=== PATIENT | female | born 1990 | race Caucasian/White ===

== ENCOUNTER 2017-08-19 13:26 | Inpatient (IN) | payer MEDICAID, SELFPAY ==
[2017-08-19 13:26] VITALS: BP 153/111; PULSE 98; RESP 16; TEMP 36.2; O2SAT 98; BMI 26.9
--- NOTE | 2017-08-19 13:50 | ED.RN ---
PT STATES NON-COMPLIANT WITH HOME MEDICATIONS FOR UNKNOWN AMOUNT OF TIME. PT IS UNSURE OF INSULIN ADMINISTRATION DOSING.
[2017-08-19] MEDS: Dicyclomine 10 MG Capsule 20 MG PO ×2 (14:07→18:08)
[2017-08-19] MEDS: Ondansetron 4 MG/2 ML Vial IV (14:07)
[2017-08-19] MEDS: 0.9% Normal Saline 1,000 ML 1000 ML IV (14:07)
[2017-08-19 14:19] LABS: Absolute Lymphocyte Count 0.72 X10^3/ul (0.83-4.51); Absolute Neutrophil Count 4.6 X10^3/uL (2.0-7.7); Basophil# 0.02 X10^3/uL; Basophil% 0.3 % (0-1); Eosinophil# 0.03 X10^3/uL; Eosinophils% 0.5 % (0-5); Hematocrit 46.7 % (37-47); Hemoglobin 16.1 g/dl (12.0-15.0); Lymphocyte # 0.72 X10^3/ul (4.0); Lymphocyte % 12.2 % (19-41); Mean Corp Hgb Conc 34.5 g/gl (32-36); Mean Platelet Vol. 9.5 fl (6.2-12.0); Monocyte# 0.45 X10^3/uL; Monocyte% 7.7 % (0-10); Neutrophil # 4.64 X10^3/uL (2.7-7.7); Platelet Count 231 K/mm3 (150-450); RBC Distribution Width CV 13.2 % (11.6-14.6); RBC Distribution Width SD 42.3 fl (35.1-43.9); Red Blood Count 5.37 M/mm3 (4.2-5.4); White Blood Count 5.9 K/mm3 (4.4-11.0)
[2017-08-19 14:20] LABS: Bedside Glucose 311 mg/dL (70-110)
[2017-08-19 14:20] LABS: POSITIVE COUNT NO; POSITIVE DIFFERENTIAL NO; POSITIVE MORPHOLOGY NO
[2017-08-19 14:32] LABS: Anion Gap 9 (5-15); BUN 6 mg/dL (7-18); BUN/Creat Ratio 9.3 RATIO (10-20); Calcium,Total 9.5 mg/dL (8.5-10.1); Chloride 100 mmol/L (98-107); Creatinine, Serum 0.65 mg/dL (0.55-1.02); EST Glomerular Filtration Rate 117 mL/min (>60); Est Glom Filt Rate - Afr Amer 142 mL/min (>60); Estimated Creatinine Clearance 127.54 ml/min; Glucose 355 mg/dL (74-106); Potassium 3.9 mmol/L (3.5-5.1); Sodium Level 132 mmol/L (136-145)
[2017-08-19 14:43] LABS: Pregnancy, Serum, hCG Quali. NEGATIVE Negative (0-9 Nonpreg)
--- NOTE | 2017-08-19 14:54 | ED.VISSUMM ---
- ER Visit Summary Date of Service: 08/19/17 Chief Complaint: High blood sugar need medical clearance for [facility] admission History of Present Illness: The patient is a 27 F who has history of diabetes who admits noncompliance and IV drug use. She states she has been injecting heroin for 1 year. She uses approximately 1 g a day. She denies fever, chills or night sweats. She complains of diaphoresis nausea abdominal pain. She states she has not used in greater than 24 hours. She states her A1c is greater than 13. Last menses was 3 weeks ago and was not normal. She does complain of nasal congestion. She does complain of palpitations. She does complain of depression anxiety. Physical Examination: Is slightly anxious. She has numerous track jesus. She has jacinto to her fingers. Head is atraumatic normocephalic. Pupils are equal round reactive. Extraocular muscles are intact. TMs are pearly white with landmarks noted. Nares patent with no drainage. Posterior pharynx without erythema or exudate. Uvula is midline. There is no dysphonia or dysphasia. Trachea is midline. There is no stridor with auscultation of the neck. Heart is regular without murmur, gallop or rub. S1 and S2 are normal. Lungs are clear to auscultation with good movement of air bilaterally. Abdomen is soft mild tenderness with slightly increased bowel sounds. Reflexes are symmetric with no clonus or Babinski sign. Motor sensory are intact. Cranial 2 through 12 are intact. Test Results: BMP is marked for glucose of 355 with a normal CO2 and anion gap. White count is normal. Serum test is negative. Emergency Department Course and Treatment: To evaluate patient's symptoms blood work was obtained. She did receive 5 units of insulin. Spoke with the intake person for [facility] who will evaluate patient to see if she does qualify for admission. Treatment Plan: Pending evaluation by [facility] intake person. Disposition: The [facility] intake person states she meets criteria for admission. She asked if I would contact the hospitalist. Impression: 1. Hyperglycemia and diabetic secondary noncompliance 2. Heroin withdrawal This note was generated with [employer] software. It may contain incorrect words, spelling, and punctuation that were not noted in review of the chart prior to signing ED Disposition - Plan for ED Patient: Chief Complaint: Subst Abuse Referrals: Care Physician,No Primary [Primary Care Provider] -
[2017-08-19 15:44] VITALS: BMI 26.9
--- NOTE | 2017-08-19 15:48 | NURSING ---
Pt reports she has not taken any of her prescribed medications for one month.
--- NOTE | 2017-08-19 15:55 | NURSING ---
DR SAMANO IN ER
--- NOTE | 2017-08-19 16:23 | PCM.HP.STD ---
Problem List (1) Opiate withdrawal Status: Acute (2) DM2 (diabetes mellitus, type 2) Status: Chronic History of Present Illness Date of Admission: 08/19/17 Chief Complaint: acute heroin withdrawal The patient is a 27 year old F who is requesting withdrawal treatment for heroin abuse. Patient injected roughly a gram a day of heroin. Patient's last use was around 1 AM. Patient has been having restless legs, abdominal cramps, rhinorrhea, nausea, abdominal cramps. Patient is requesting treatment. Patient was seen by Akbar Herrera and sent to the emergency room because patient had an elevated blood sugar. Patient blood sugar was 311. In the emergency room, he received Bentyl, 5 units of NovoLog, Zofran and IV fluids. [] Past Medical History Past Medical History (Chronic Problems): Chronic Problems DM2 (diabetes mellitus, type 2) (Chronic) Allergies No Known Allergies Allergy (Verified 08/19/17 13:30) Home Medications: Ambulatory Orders Medication Instructions Recorded Gabapentin [Neurontin] 800 mg PO Q4H PRN 08/19/17 Insulin Lispro [Humalog] 0 unit SQ TIDCM 08/19/17 Lisinopril [Zestril] 40 mg PO DAILY 08/19/17 Psychiatric History: No pertinent psych hx Smoking Status: Current every day smoker Tobacco Use: Cigarettes Alcohol: None Drugs: Heroin - *Family History Maternal History Items: - - No diabetes Review of Systems Constitutional: Reports: Anorexia, Chills. Denies: Fever Eyes: Denies: Blurred vision, Double vision HEENT: Reports: - - Rhinorrhea. Denies: Difficulty Hearing, Difficulty Swallowing Cardiovascular: Denies: Chest Pain, Palpitations Respiratory: Denies: Cough, Shortness of breath at rest, Sputum production Gastrointestinal: Reports: Abdominal Pain, Nausea Genitourinary: Denies: Dysuria Musculoskeletal: Denies: Joint Pain, Joint Tenderness Skin: Denies: Rash, Wounds Neurological: Denies: Numbness, Tingling, Focal weakness Psychiatric: Denies: Anxiety, Depression Hematologic/ Lymphatic: Denies: Easy Bruising, Easy Bleeding, Hx of blood clot VTE Information - Inpt Only VTE Present on Admission: No VTE Mechan Device Prophylaxis: None Reason prophylaxis not ordered:: Medical Contraindication Patient Problems: Active and Suspected Problems Opiate withdrawal (Acute) - Physical Exam General: Alert, - - Anxious. Patient's writhing in bed counseling moving her legs. Verbally combative and threatening to leave if she does not get treatment right away. HEENT: Atraumatic, Normocephalic Neck: No Nodes, Thyroid Normal Size and Texture Lungs: Clear to auscultation, Normal air movement, No rhonchi, No wheeze Cardiovascular: Regular rate, Regular Rhythm, Normal S1, Normal S2 Abdomen: Bowel Sounds Present, Soft, Non Tender, Non-Distended, No Hepato-splenomegaly Extremities: No edema, No Calf Tenderness Skin: - - Does not track jesus of the upper extremities but no fluctuance nor any abscesses noted. Musculoskeletal: No Tenderness to Palpation of Joints or Extremities, No Muscle Wasting Psych/Mental Status: Agitated, Anxious Vital Signs Temp Pulse Resp BP Pulse Ox 36.2 C L 98 16 153/111 H 98 08/19/17 13:26 08/19/17 13:26 08/19/17 13:26 08/19/17 13:26 08/19/17 13:26 Oxygen Delivery Method Room Air Weight: 78.018 kg Body Mass Index (BMI) 26.9 Finger Stick Blood Glucose 311 Laboratory Tests Past 24 Hrs 08/19/17 08/19/17 08/19/17 14:10 14:10 14:10 WBC 5.9 RBC 5.37 Hgb 16.1 H Hct 46.7 MCV 87.0 MCH 30.0 MCHC 34.5 RDW 13.2 RDW Differential 42.3 Plt Count 231 MPV 9.5 Immature Gran % (Auto) 0.300 Neut % (Auto) 79.0 H Lymph % (Auto) 12.2 L Swift % (Auto) 7.7 Eos % (Auto) 0.5 Baso % (Auto) 0.3 Absolute Neuts (auto) 4.6 Absolute Lymphs (auto) 0.72 L Total Counted Not Reportable Sodium 132 L Potassium 3.9 Chloride 100 Carbon Dioxide 23.0 Anion Gap 9 BUN 6 L Creatinine 0.65 Estim Creat Clear Calc 127.54 Est GFR (MDRD) Af Amer 142 Est GFR (MDRD) Non-Af 117 BUN/Creatinine Ratio 9.3 L Glucose 355 H Calcium 9.5 Serum , Qual NEGATIVE POC Glucose 08/19/17 14:15 POC Glucose 311 H Assessment/Plan Active and Suspected Problems Opiate withdrawal (Acute) 1. Acute opiate withdrawal Patient uses heroin CINA 18 The medical stabilization protocol for opiates with Subutex. For patient other somatic complaints, patient will have other medications to be provided for issues such as restless legs and abdominal cramps. 2. Diabetes mellitus type 2 Uncontrolled due to noncompliance. Patient just was using needles of heroin in lieu of needles of insulin. Will start patient on 25 of Levemir +5 units of NovoLog with meals plus a sliding scale. Make further adjustments based on how her blood sugar response. A young age and thin appearance, patient states that she is not a type I diabetic Code Visit Inpatient E&M: 59732 Init Hosp L2
[2017-08-19 16:25] VITALS: BP 159/113; PULSE 69; RESP 27; O2SAT 98
--- NOTE | 2017-08-19 16:25 | NURSING ---
Nayan HEROIN WITHDRAWAL JAZMYNE
--- NOTE | 2017-08-19 16:31 | HP.PCM_ITS ---
Problem List (1) Opiate withdrawal Status: Acute (2) DM2 (diabetes mellitus, type 2) Status: Chronic History of Present Illness Date of Admission: 08/19/17 Chief Complaint: acute heroin withdrawal The patient is a 27 year old F who is requesting withdrawal treatment for heroin abuse. Patient injected roughly a gram a day of heroin. Patient's last use was around 1 AM. Patient has been having restless legs, abdominal cramps, rhinorrhea, nausea, abdominal cramps. Patient is requesting treatment. Patient was seen by Akbar Herrera and sent to the emergency room because patient had an elevated blood sugar. Patient blood sugar was 311. In the emergency room, he received Bentyl, 5 units of NovoLog, Zofran and IV fluids. [] Past Medical History Past Medical History (Chronic Problems): Chronic Problems DM2 (diabetes mellitus, type 2) (Chronic) Allergies No Known Allergies Allergy (Verified 08/19/17 13:30) Home Medications: Ambulatory Orders Medication Instructions Recorded Gabapentin [Neurontin] 800 mg PO Q4H PRN 08/19/17 Insulin Lispro [Humalog] 0 unit SQ TIDCM 08/19/17 Lisinopril [Zestril] 40 mg PO DAILY 08/19/17 Psychiatric History: No pertinent psych hx Smoking Status: Current every day smoker Tobacco Use: Cigarettes Alcohol: None Drugs: Heroin - *Family History Maternal History Items: - - No diabetes Review of Systems Constitutional: Reports: Anorexia, Chills. Denies: Fever Eyes: Denies: Blurred vision, Double vision HEENT: Reports: - - Rhinorrhea. Denies: Difficulty Hearing, Difficulty Swallowing Cardiovascular: Denies: Chest Pain, Palpitations Respiratory: Denies: Cough, Shortness of breath at rest, Sputum production Gastrointestinal: Reports: Abdominal Pain, Nausea Genitourinary: Denies: Dysuria Musculoskeletal: Denies: Joint Pain, Joint Tenderness Skin: Denies: Rash, Wounds Neurological: Denies: Numbness, Tingling, Focal weakness Psychiatric: Denies: Anxiety, Depression Hematologic/ Lymphatic: Denies: Easy Bruising, Easy Bleeding, Hx of blood clot VTE Information - Inpt Only VTE Present on Admission: No VTE Mechan Device Prophylaxis: None Reason prophylaxis not ordered:: Medical Contraindication Patient Problems: Active and Suspected Problems Opiate withdrawal (Acute) - Physical Exam General: Alert, - - Anxious. Patient's writhing in bed counseling moving her legs. Verbally combative and threatening to leave if she does not get treatment right away. HEENT: Atraumatic, Normocephalic Neck: No Nodes, Thyroid Normal Size and Texture Lungs: Clear to auscultation, Normal air movement, No rhonchi, No wheeze Cardiovascular: Regular rate, Regular Rhythm, Normal S1, Normal S2 Abdomen: Bowel Sounds Present, Soft, Non Tender, Non-Distended, No Hepato- splenomegaly Extremities: No edema, No Calf Tenderness Skin: - - Does not track jesus of the upper extremities but no fluctuance nor any abscesses noted. Musculoskeletal: No Tenderness to Palpation of Joints or Extremities, No Muscle Wasting Psych/Mental Status: Agitated, Anxious Vital Signs Temp Pulse Resp BP Pulse Ox 36.2 C L 98 16 153/111 H 98 08/19/17 13:26 08/19/17 13:26 08/19/17 13:26 08/19/17 13:26 08/19/17 13:26 Oxygen Delivery Method Room Air Weight: 78.018 kg Body Mass Index (BMI) 26.9 Finger Stick Blood Glucose 311 Laboratory Tests Past 24 Hrs 08/19/17 08/19/17 08/19/17 14:10 14:10 14:10 WBC 5.9 RBC 5.37 Hgb 16.1 H Hct 46.7 MCV 87.0 MCH 30.0 MCHC 34.5 RDW 13.2 RDW Differential 42.3 Plt Count 231 MPV 9.5 Immature Gran % (Auto) 0.300 Neut % (Auto) 79.0 H Lymph % (Auto) 12.2 L Sampson % (Auto) 7.7 Eos % (Auto) 0.5 Baso % (Auto) 0.3 Absolute Neuts (auto) 4.6 Absolute Lymphs (auto) 0.72 L Total Counted Not Reportable Sodium 132 L Potassium 3.9 Chloride 100 Carbon Dioxide 23.0 Anion Gap 9 BUN 6 L Creatinine 0.65 Estim Creat Clear Calc 127.54 Est GFR (MDRD) Af Amer 142 Est GFR (MDRD) Non-Af 117 BUN/Creatinine Ratio 9.3 L Glucose 355 H Calcium 9.5 Serum , Qual NEGATIVE POC Glucose 08/19/17 14:15 POC Glucose 311 H Assessment/Plan Active and Suspected Problems Opiate withdrawal (Acute) 1. Acute opiate withdrawal * Patient uses heroin * CINA 18 * The medical stabilization protocol for opiates with Subutex. For patient other somatic complaints, patient will have other medications to be provided for issues such as restless legs and abdominal cramps. 2. Diabetes mellitus type 2 * Uncontrolled due to noncompliance. Patient just was using needles of heroin in lieu of needles of insulin. * Will start patient on 25 of Levemir +5 units of NovoLog with meals plus a sliding scale. Make further adjustments based on how her blood sugar response. * A young age and thin appearance, patient states that she is not a type I diabetic Code Visit Inpatient E&M: 03939 Init Hosp L2
[2017-08-19 16:35] VITALS: BP 159/113; PULSE 69; RESP 27; O2SAT 98
[2017-08-19 17:05] VITALS: BMI 26.4
[2017-08-19 17:06] VITALS: BP 157/105; PULSE 76; RESP 18; TEMP 36.6; O2SAT 96
[2017-08-19 18:01] LABS: Bedside Glucose 455 mg/dL (70-110)
[2017-08-19] MEDS: Buprenorphine HCl 2 MG TAB.SUBL SL (18:07)
[2017-08-19] MEDS: Methocarbamol 750 MG Tablet PO (18:09)
[2017-08-19] MEDS: cloNIDine HCl 0.1 MG Tablet PO ×2 (18:09→21:49)
[2017-08-19 18:55] LABS: Bedside Glucose 444 mg/dL (70-110)
[2017-08-19 21:43] VITALS: BP 145/100; PULSE 81; RESP 18; TEMP 36.8
[2017-08-19] MEDS: traZODone 50 MG Tablet PO (21:49)
[2017-08-19 22:16] LABS: Bedside Glucose 408 mg/dL (70-110)
[2017-08-19] MEDS: Ibuprofen 600 MG Tablet PO (23:31)
[2017-08-19] MEDS: Pramipexole Di-HCl 0.25 MG Tablet PO (23:31)
--- NOTE | 2017-08-19 23:32 | NURSING ---
MOTRIN AND MIRAPEX GIVEN FOR RESTLESS AND PAINFUL LEGS.
[2017-08-20] VITALS (7 sets, daily range): BP systolic 126–151; BP diastolic 82–108; PULSE 70–86; RESP 14–18; TEMP 36.4–37.1; O2SAT 99
[2017-08-20] MEDS: cloNIDine HCl 0.1 MG Tablet PO ×5 (02:40→21:06)
[2017-08-20] MEDS: Ondansetron ODT 4 MG Tablet PO ×3 (02:40→21:06)
[2017-08-20] MEDS: Buprenorphine HCl 2 MG TAB.SUBL SL ×3 (02:40→18:05)
[2017-08-20] MEDS: Methocarbamol 750 MG Tablet PO ×3 (02:40→21:06)
[2017-08-20] MEDS: Acetaminophen 500 MG Tablet PO (03:25)
[2017-08-20] MEDS: hydrOXYzine PAM 25 MG Capsule 50 MG PO ×2 (05:35→14:07)
[2017-08-20 06:25] LABS: Magnesium 2.1 mg/dL (1.6-2.6)
--- NOTE | 2017-08-20 08:01 | PN_ITS ---
Patient Problems: Active and Suspected Problems Opiate withdrawal (Acute) Subjective: This is a 27-year-old lady with history of diabetes mellitus type 1 as well as heroine dependence who presented with acute opiate withdrawal 08/20/2017: Patient seen very diaphoretic this a.m. complains of nausea. Objective: GENERAL: cooperative HEENT: Clear conjunctiva, NECK; supple, normal thyroid, CHEST: Clear to auscultation bilaterally, HEART: Regular S1 S2, no audible murmurs ABDOMEN: soft, non-tender, normoactive bowel sounds, RECTAL: deferred EXTREMITIES: No edema, no clubbing, no cyanosis. 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 SKIN: No rash Vitals/I&O's: Vital Signs Temp Pulse Resp BP Pulse Ox 97.6 F L 71 18 126/91 H 96 08/20/17 05:37 08/20/17 05:37 08/20/17 05:37 08/20/17 05:37 08/19/17 17:06 Oxygen Delivery Method Room Air Weight: 76.612 kg Body Mass Index (BMI) 26.4 Intake and Output for Last 24 Hours 08/18/17 08/19/17 08/20/17 23:59 23:59 23:59 Intake Total 640 / 640 900 / 900 Balance 640 / 640 900 / 900 Laboratory Results 08/19/17 17:57: POC Glucose 455 H* 08/19/17 18:52: POC Glucose 444 H 08/19/17 21:48: POC Glucose 408 H 08/20/17 05:40: Magnesium 2.1 08/20/17 05:40: Hemoglobin A1c Pending Current Medications Acetaminophen (Tylenol) 500 mg PO Q4H PRN PRN PRN Reason: Temp > 100.4 F Last Admin: 08/20/17 03:25 Dose: 500 mg Al Hydroxide/Mg Hydroxide (Mylanta Ii) 30 ml PO Q6H PRN PRN PRN Reason: dyspesia Buprenorphine HCl (Buprenorphine Hcl) 4 mg SL Q8H WILMER PRN Reason: Taper Stop: 08/22/17 21:59 Last Admin: 08/20/17 02:40 Dose: 4 mg Clonidine (Catapres) 0.1 mg PO Q2H PRN PRN PRN Reason: Hot/Cold Sweats or Anxiety Last Admin: 08/20/17 05:35 Dose: 0.1 mg Dextrose (D50w Syringe) 0 gm IV X1 PRN; Protocol PRN Reason: Hypoglycemia Dicyclomine HCl (Bentyl) 20 mg PO Q6H PRN PRN PRN Reason: Abdomnial Discomfort Last Admin: 08/19/17 18:08 Dose: 20 mg Gabapentin (Neurontin) 800 mg PO Q4H PRN PRN PRN Reason: PAIN Glucagon () 1 mg IM .X1 PRN PRN Reason: Hypoglycemia Hydroxyzine Pamoate (Vistaril Pamoate Capsule) 50 mg PO Q6H PRN PRN PRN Reason: Mild Anxiety (score 1/3) Last Admin: 08/20/17 05:35 Dose: 50 mg Ibuprofen (Motrin) 600 mg PO Q8H PRN PRN PRN Reason: Mild-Moderate Pain (1-5/10) Last Admin: 08/19/17 23:31 Dose: 600 mg Insulin Aspart (Novolog Flexpen (Bkc)) 5 units SC DINNER [facility] Last Admin: 08/19/17 18:09 Dose: 5 units Insulin Aspart (Novolog Flexpen (Bkc)) 5 units SC BREAKFAST WILMER Insulin Aspart (Novolog Flexpen (Bkc)) 5 units SC LUNCH WILMER Insulin Aspart (Novolog Flexpen (Bkc)) 0 units SC ACHS WILMER PRN Reason: Protocol Insulin Detemir (Levemir (Bkc)) 25 units SC QHS [facility] Last Admin: 08/19/17 21:49 Dose: 25 u Lisinopril (Zestril) 40 mg PO DAILY [facility] Loperamide HCl (Imodium) 2 - 4 mg PO UD PRN PRN Reason: LOOSE STOOLS Magnesium Hydroxide (Milk Of Magnesia) 30 ml PO DAILY PRN PRN PRN Reason: Constipation Methocarbamol (Methocarbamol) 750 mg PO Q6H PRN PRN PRN Reason: Muscle Aches Last Admin: 08/20/17 02:40 Dose: 750 mg Multivitamins/Minerals ([facility]amin With Minerals) [facility] Nicotine (Nicoderm Cq (Pbkc)) 21 mg TRANSDERM. DAILY [facility] Last Admin: 08/19/17 18:17 Dose: 21 mg Ondansetron HCl (Zofran Odt) 4 mg PO Q6H PRN PRN PRN Reason: NAUSEA Last Admin: 08/20/17 02:40 Dose: 4 mg Pramipexole Dihydrochloride (Mirapex) 0.25 mg PO Q12H PRN PRN PRN Reason: Restless Legs Last Admin: 08/19/17 23:31 Dose: 0.25 mg Sodium Chloride () 5 - 30 ml IV UD PRN PRN Reason: SALINE FLUSH Trazodone HCl (Desyrel) 50 mg PO QHS WILMER Last Admin: 08/19/17 21:49 Dose: 50 mg Medical Necessity - Tobacco Use Smoking Status: Current every day smoker Tobacco Use: Cigarettes Assessment/Plan Active and Suspected Problems Opiate withdrawal (Acute) This is a 27-year-old lady with history of diabetes mellitus type 1 as well as heroine dependence who presented with acute opiate withdrawal 1. Acute opioid withdrawal: Patient has been admitted to regular nursing floor where he is currently being managed with Subutex for medical stabilization 2. Heroin dependence counseled on cessation 3. Tobacco dependence counseled on cessation, offered nicotine patch for tobacco cravings 4. Diabetes mellitus type I patient is on insulin did continue with home regimen in addition to Accu-Cheks before meals and at bedtime with sliding scale coverage 5. DVT prophylaxis low risk did encourage early ambulation Code Visit Inpatient E&M: 66063 Subs Hosp L3
[2017-08-20 08:36] LABS: Bedside Glucose 323 mg/dL (70-110)
[2017-08-20] MEDS: Multivitamins,Ther W-Minerals Tablet 1 TABLET PO (09:45)
[2017-08-20] MEDS: Lisinopril 40 MG Tablet PO (09:45)
[2017-08-20] MEDS: Magnesium Hydroxide 30 ML UDC PO (09:53)
[2017-08-20 11:46] LABS: Bedside Glucose 390 mg/dL (70-110)
[2017-08-20] MEDS: Pramipexole Di-HCl 0.25 MG Tablet PO (14:07)
[2017-08-20] MEDS: Dicyclomine 10 MG Capsule 20 MG PO ×2 (14:07→21:05)
[2017-08-20 16:40] LABS: Bedside Glucose 321 mg/dL (70-110)
[2017-08-20] MEDS: Ibuprofen 600 MG Tablet PO (18:17)
[2017-08-20] MEDS: traZODone 50 MG Tablet PO (21:05)
[2017-08-20 21:21] LABS: Bedside Glucose 416 mg/dL (70-110)
[2017-08-21] MEDS: Buprenorphine HCl 2 MG TAB.SUBL SL ×3 (02:36→22:14)
[2017-08-21] MEDS: cloNIDine HCl 0.1 MG Tablet PO ×4 (02:39→19:48)
[2017-08-21 02:41] VITALS: BP 145/100; PULSE 72; RESP 18; TEMP 36.7
[2017-08-21 07:25] VITALS: BP 147/109; PULSE 69; RESP 16; TEMP 36.7
[2017-08-21] MEDS: Lisinopril 40 MG Tablet PO (07:42)
--- NOTE | 2017-08-21 07:43 | PN_ITS ---
Patient Problems: Active and Suspected Problems Opiate withdrawal (Acute) Subjective: Patient seen blood glucose levels not well controlled currently in the 300s ; adjustment made to her insulin regimen Objective: GENERAL: cooperative HEENT: Clear conjunctiva, NECK; supple, normal thyroid, CHEST: Clear to auscultation bilaterally, HEART: Regular S1 S2, no audible murmurs ABDOMEN: soft, non-tender, normoactive bowel sounds, RECTAL: deferred EXTREMITIES: No edema, no clubbing, no cyanosis. 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 SKIN: No rash Vitals/I&O's: Vital Signs Temp Pulse Resp BP Pulse Ox 98.1 F 69 16 147/109 H 99 08/21/17 07:25 08/21/17 07:25 08/21/17 07:25 08/21/17 07:25 08/20/17 08:29 Oxygen Delivery Method Room Air Weight: 76.612 kg Body Mass Index (BMI) 26.4 Intake and Output for Last 24 Hours 08/19/17 08/20/17 08/21/17 23:59 23:59 23:59 Intake Total 640 / 640 2500 / 2500 Balance 640 / 640 2500 / 2500 Laboratory Results 08/20/17 05:40: Hemoglobin A1c 13.0 H 08/20/17 08:32: POC Glucose 323 H 08/20/17 11:40: POC Glucose 390 H 08/20/17 16:37: POC Glucose 321 H 08/20/17 20:56: POC Glucose 416 H Current Medications Acetaminophen (Tylenol) 500 mg PO Q4H PRN PRN PRN Reason: Temp > 100.4 F Last Admin: 08/20/17 03:25 Dose: 500 mg Al Hydroxide/Mg Hydroxide (Mylanta Ii) 30 ml PO Q6H PRN PRN PRN Reason: dyspesia Buprenorphine HCl (Buprenorphine Hcl) 2 mg SL Q8H WILMER PRN Reason: Taper Stop: 08/22/17 21:59 Last Admin: 08/21/17 02:36 Dose: 2 mg Clonidine (Catapres) 0.1 mg PO Q2H PRN PRN PRN Reason: Hot/Cold Sweats or Anxiety Last Admin: 08/21/17 02:39 Dose: 0.1 mg Dextrose (D50w Syringe) 0 gm IV X1 PRN; Protocol PRN Reason: Hypoglycemia Dicyclomine HCl (Bentyl) 20 mg PO Q6H PRN PRN PRN Reason: Abdomnial Discomfort Last Admin: 08/20/17 21:05 Dose: 20 mg Gabapentin (Neurontin) 800 mg PO Q4H PRN PRN PRN Reason: PAIN Glucagon () 1 mg IM .X1 PRN PRN Reason: Hypoglycemia Hydroxyzine Pamoate (Vistaril Pamoate Capsule) 50 mg PO Q6H PRN PRN PRN Reason: Mild Anxiety (score 1/3) Last Admin: 08/20/17 14:07 Dose: 50 mg Ibuprofen (Motrin) 600 mg PO Q8H PRN PRN PRN Reason: Mild-Moderate Pain (1-5/10) Last Admin: 08/20/17 18:17 Dose: 600 mg Insulin Aspart (Novolog Flexpen (Bkc)) 5 units SC DINNER [facility] Last Admin: 08/20/17 17:09 Dose: 5 units Insulin Aspart (Novolog Flexpen (Bkc)) 5 units SC BREAKFAST [facility] Last Admin: 08/20/17 09:46 Dose: 5 units Insulin Aspart (Novolog Flexpen (Bkc)) 5 units SC LUNCH [facility] Last Admin: 08/20/17 11:59 Dose: 5 units Insulin Aspart (Novolog Flexpen (Bkc)) 0 units SC ACHS [facility] PRN Reason: Protocol Last Admin: 08/20/17 21:06 Dose: 11 units Insulin Detemir (Levemir (Bkc)) 25 units SC QHS [facility] Last Admin: 08/20/17 21:06 Dose: 25 u Lisinopril (Zestril) 40 mg PO DAILY [facility] Last Admin: 08/20/17 09:45 Dose: 40 mg Loperamide HCl (Imodium) 2 - 4 mg PO UD PRN PRN Reason: LOOSE STOOLS Magnesium Hydroxide (Milk Of Magnesia) 30 ml PO DAILY PRN PRN PRN Reason: Constipation Last Admin: 08/20/17 09:53 Dose: 30 ml Methocarbamol (Methocarbamol) 750 mg PO Q6H PRN PRN PRN Reason: Muscle Aches Last Admin: 08/20/17 21:06 Dose: 750 mg Multivitamins/Minerals ([facility]amin [facility] Minerals) [facility] Last Admin: 08/20/17 09:45 Dose: 1 tablet Nicotine (Nicoderm Cq (Pbkc)) 21 mg TRANSDERM. DAILY [facility] Last Admin: 08/20/17 09:44 Dose: 21 mg Nicotine Polacrilex (Rugby Nicotine (Bkc)) 2 mg PO Q2H PRN PRN PRN Reason: Nicotine Craving Ondansetron HCl (Zofran Odt) 4 mg PO Q6H PRN PRN PRN Reason: NAUSEA Last Admin: 08/20/17 21:06 Dose: 4 mg Pramipexole Dihydrochloride (Mirapex) 0.25 mg PO Q12H PRN PRN PRN Reason: Restless Legs Last Admin: 08/20/17 14:07 Dose: 0.25 mg Sodium Chloride () 5 - 30 ml IV UD PRN PRN Reason: SALINE FLUSH Trazodone HCl (Desyrel) 50 mg PO QHS [facility] Last Admin: 08/20/17 21:05 Dose: 50 mg Medical Necessity - Tobacco Use Smoking Status: Current every day smoker Tobacco Use: Cigarettes Assessment/Plan Active and Suspected Problems Opiate withdrawal (Acute) This is a 27-year-old lady with history of diabetes mellitus type 1 as well as heroine dependence who presented with acute opiate withdrawal 1. Acute opioid withdrawal: Patient has been admitted to regular nursing floor where he is currently being managed with Subutex for medical stabilization 2. Heroin dependence counseled on cessation 3. Tobacco dependence counseled on cessation, offered nicotine patch for tobacco cravings 4. Diabetes mellitus type I patient is on insulin did continue with home regimen in addition to Accu-Cheks before meals and at bedtime with sliding scale coverage 5. DVT prophylaxis low risk did encourage early ambulation Code Visit Inpatient E&M: 34843 Subs Hosp L2
[2017-08-21] MEDS: Methocarbamol 750 MG Tablet PO ×3 (07:49→22:14)
[2017-08-21] MEDS: Multivitamins,Ther W-Minerals Tablet 1 TABLET PO (08:13)
[2017-08-21] MEDS: Dicyclomine 10 MG Capsule 20 MG PO ×2 (10:42→19:47)
[2017-08-21] MEDS: Ondansetron ODT 4 MG Tablet PO ×2 (10:43→19:47)
[2017-08-21] MEDS: Nicotine Polacrilex 2 MG GUM PO ×3 (10:44→22:20)
[2017-08-21 11:26] LABS: Bedside Glucose 317 mg/dL (70-110)
[2017-08-21 11:36] LABS: Bedside Glucose 355 mg/dL (70-110)
--- NOTE | 2017-08-21 13:06 | CASEMGMT ---
Addendum entered by Antonio Givens 08/21/17 13:37: F/U appointment made with Radha Sherman for Sunday, September 10, 2017. Pt is aware, card with appt date/time given to pt. Original Note: DARCIE LONG consulted for pt who is part of [facility]. Type I diabetic, states she does not know where her supplies and insulin pens are. DARCIE LONG discussed importance of blood glucose monitoring, f/u with physicians and taking medications as prescribed. Business card given for [facility]. Pt states she will call for f/u on dc. -[facility] formulary review for 2018. Levemir inj and flextouch is on the formulary. -Recommend technical publications manager counseling prior to dc. Huey MAHONEY RN ACM
[2017-08-21 14:00] VITALS: BP 153/110; PULSE 79; RESP 16; TEMP 37
[2017-08-21] MEDS: hydrOXYzine PAM 25 MG Capsule 50 MG PO ×2 (14:30→22:14)
[2017-08-21 17:50] LABS: Bedside Glucose 254 mg/dL (70-110)
[2017-08-21 18:00] VITALS: BP 146/89; PULSE 78; RESP 16; TEMP 37
[2017-08-21] MEDS: Pramipexole Di-HCl 0.25 MG Tablet PO (19:47)
[2017-08-21] MEDS: Ibuprofen 600 MG Tablet PO (19:47)
[2017-08-21 19:55] VITALS: BP 157/13; PULSE 90; RESP 16; TEMP 36.9
[2017-08-21] MEDS: traZODone 50 MG Tablet PO (22:15)
[2017-08-21] MEDS: Gabapentin 800 MG Tablet PO (22:15)
[2017-08-21 22:40] VITALS: BP 155/116
[2017-08-22 00:06] LABS: Bedside Glucose 360 mg/dL (70-110)
[2017-08-22] MEDS: hydroCHLOROthiazide 25 MG Tablet 12.5 MG PO ×2 (01:00→10:46)
[2017-08-22 05:59] VITALS: BP 129/93; PULSE 70; RESP 16; TEMP 36.6
--- NOTE | 2017-08-22 07:36 | DCINST_ITS ---
- Discharge Diagnoses Current Active Problems: Current Active and Chronic Problems Opiate withdrawal (Acute) DM2 (diabetes mellitus, type 2) (Chronic) You will use the following diet at home:: Calorie/Carbohydrate Controlled ( specify 1200, 1400, etc) - 1800 Discharge Activity: Return to Normal Activity Instructions: Healthy Meals for Diabetes, Diabetes: Understanding Carbohydrates , Eating Out When You Have Diabetes, Diabetes: Shopping for and Preparing Meals , Diabetes: Sick-Day Plan, Planning for Travel When You Have Diabetes, Understanding Fat and Cholesterol, Diabetes: Living Your Life, Managing Diabetes : The A1C Test, Diabetes: Learning About Serving and Portion Sizes, Diabetes: Meal Planning, Diabetes: Understanding Carbohydrates, Fats, and Protein, Getting Support When You Have Diabetes, Managing Stress When You Have Diabetes, Understanding Type 1 Diabetes, Your Diabetes Toolkit Allergies/Adverse Reactions: Allergies No Known Allergies Allergy (Verified 08/19/17 13:30) Medications to take at Discharge Gabapentin [Neurontin] 800 mg PO Q4H PRN 08/19/17 Insulin Lispro [Humalog] 0 unit SQ TIDCM 08/19/17 Lisinopril [Zestril] 40 mg PO DAILY 08/19/17 Primary Care Physician: Care Physician,No Primary [Primary Care Provider] - Please Follow Up With: Nancy Sherman NP-C When: Friday Proposed Discharge Date: 08/22/17
--- NOTE | 2017-08-22 07:36 | PCM.DC.SUM ---
Discharge Date and Diagnosis - Problem List Patient Problems: Active and Suspected Problems Opiate withdrawal (Acute) Date of Admission: 08/19/17 Date of Discharge: 08/22/17 - Primary Discharge Diagnosis Active and Suspected Problems Opiate withdrawal (Acute) - Secondary Discharge Diagnosis Chronic Problems DM2 (diabetes mellitus, type 2) (Chronic) Hospital Course and Treatment Summary of Care Provided: This is a 27-year-old lady with history of diabetes mellitus type 1 as well as heroine dependence who presented with acute opiate withdrawal 1. Acute opioid withdrawal: Patient has been admitted to regular nursing floor where he is currently being managed with Subutex for medical stabilization 2. Heroin dependence counseled on cessation 3. Tobacco dependence counseled on cessation, offered nicotine patch for tobacco cravings 4. Diabetes mellitus type I patient is on insulin did continue with home regimen in addition to Accu-Cheks before meals and at bedtime with sliding scale coverage prescriptions were written for insulin as well as supplies for the patient has an appointment with Endocrinology as outpatient on 09/10/2017 was instructed to keep the appointment 5. DVT prophylaxis low risk did encourage early ambulation Discharge Diet: 1800 Calorie Control Diet Discharge Activity: Return to Normal Activity Home Medications: Medications to take at Discharge Gabapentin [Neurontin] 800 mg PO Q4H PRN 08/19/17 Insulin Lispro [Humalog] 0 unit SQ TIDCM 08/19/17 Lisinopril [Zestril] 40 mg PO DAILY 08/19/17 Insulin Aspart [Novolog Flexpen] 5 units SC TIDCM #10 flexpen 08/22/17 Insulin Detemir [Levemir FlexPen] 25 units SC BID #20 insuln.pen 08/22/17 Following Prescrptions Were Given to Patient: Insulin Aspart [Novolog Flexpen] 5 units SC TIDCM #10 flexpen Insulin Detemir [Levemir FlexPen] 25 units SC BID #20 insuln.pen Primary Care Physician: Care Physician,No Primary [Primary Care Provider] - Please Follow Up With: Nancy Sherman NP-C When: Friday Patient Instructions: Healthy Meals for Diabetes, Diabetes: Understanding Carbohydrates, Eating Out When You Have Diabetes, Diabetes: Shopping for and Preparing Meals, Diabetes: Sick-Day Plan, Planning for Travel When You Have Diabetes, Understanding Fat and Cholesterol, Diabetes: Living Your Life, Managing Diabetes: The A1C Test, Diabetes: Learning About Serving and Portion Sizes, Diabetes: Meal Planning, Diabetes: Understanding Carbohydrates, Fats, and Protein, Getting Support When You Have Diabetes, Managing Stress When You Have Diabetes, Understanding Type 1 Diabetes, Your Diabetes Toolkit Disposition: Home Minutes spent on discharge:: 35 Patient Condition:: Stable Medical Necessity - Tobacco Use Smoking Status: Current every day smoker Tobacco Use: Cigarettes Meaningful Use Info Meaningful Use Diagnoses (Choose all that apply): None applicable Code Visit Inpatient E&M: 76131 Disch Hosp
--- NOTE | 2017-08-22 08:07 | DCINST_ITS ---
- Discharge Diagnoses Current Active Problems: Current Active and Chronic Problems Opiate withdrawal (Acute) DM2 (diabetes mellitus, type 2) (Chronic) Discharge Activity: Return to Normal Activity Instructions: Healthy Meals for Diabetes, Diabetes: Understanding Carbohydrates , Eating Out When You Have Diabetes, Diabetes: Shopping for and Preparing Meals , Diabetes: Sick-Day Plan, Planning for Travel When You Have Diabetes, Understanding Fat and Cholesterol, Diabetes: Living Your Life, Managing Diabetes : The A1C Test, Diabetes: Learning About Serving and Portion Sizes, Diabetes: Meal Planning, Diabetes: Understanding Carbohydrates, Fats, and Protein, Getting Support When You Have Diabetes, Managing Stress When You Have Diabetes, Understanding Type 1 Diabetes, Your Diabetes Toolkit Allergies/Adverse Reactions: Allergies No Known Allergies Allergy (Verified 08/19/17 13:30) Medications to take at Discharge Gabapentin [Neurontin] 800 mg PO Q4H PRN 08/19/17 Insulin Lispro [Humalog] 0 unit SQ TIDCM 08/19/17 Lisinopril [Zestril] 40 mg PO DAILY 08/19/17 Insulin Aspart [Novolog Flexpen] 5 units SC TIDCM #10 flexpen 08/22/17 Insulin Detemir [Levemir FlexPen] 25 units SC BID #20 insuln.pen 08/22/17 The following prescriptions were given: Insulin Aspart [Novolog Flexpen] 5 units SC TIDCM #10 flexpen Insulin Detemir [Levemir FlexPen] 25 units SC BID #20 insuln.pen Primary Care Physician: Care Physician,No Primary [Primary Care Provider] - Please Follow Up With: Nancy Sherman NP-C When: Friday Proposed Discharge Date: 08/22/17
[2017-08-22 08:09] VITALS: BP 143/110; PULSE 83; RESP 18; TEMP 36.6
[2017-08-22 08:14] VITALS: O2SAT 98
[2017-08-22 08:26] LABS: Bedside Glucose 324 mg/dL (70-110)
[2017-08-22] MEDS: Methocarbamol 750 MG Tablet PO (08:27)
[2017-08-22] MEDS: Multivitamins,Ther W-Minerals Tablet 1 TABLET PO (10:40)
[2017-08-22] MEDS: Nicotine Polacrilex 2 MG GUM PO (10:40)
[2017-08-22] MEDS: Buprenorphine HCl 2 MG TAB.SUBL SL (10:40)
[2017-08-22] MEDS: Lisinopril 40 MG Tablet PO (10:41)
[2017-08-22] MEDS: cloNIDine HCl 0.1 MG Tablet PO (10:45)
[2017-08-22 11:46] LABS: Bedside Glucose 396 mg/dL (70-110)
--- NOTE | 2017-08-22 12:22 | NURSING ---
Addendum entered by Meli Parry 08/22/17 12:27: novolog and levemir used at hospital was sent with patient- and given 1 insulin pen needle to given herself novolog prior to eating- BGT checked immediately prior to patient being d/c'ed. States she is going to eat with her family and refuses lunch here. Original Note: Over past 3 days- demonstrations shown as to how to inject insulin correctly with insulin pen. Patient did self inject prior to leaving unit. patient verbalized that she feels comfortable giving herself insulin. Severe knowledge deficit regarding diabetes with patient's mother and father (lives with). Reminded of all [place] information that was given so that patient can share with family. Mother and father her on discharge with patient's 1 year old daughter. While here patient states that her brother also uses heroin on occasion and that he lives in the same household. patient verbalized anxiety regarding being around this and in the same house. Patient encouraged to tell parents in order to offer her the best situation for her success- and reminded that her daughter needs her and is her responsibility. patient verbalized understanding. Patient states she has a bp cuff at home- when asked. Educated patient to check her b/p and monitor daily for PCP to make changes if needed for her b/p meds. Pt also encouraged/ educated on importance of BGT log- and how to set it up on paper. Patient verbalized understanding. Encouraged/ reminded to monitor amount of sugar and carbs that she eats due to her diabetes.
== END 2017-08-22 11:45 | disposition home or self-care (01) | DRG 434 ==
LOC: ED 14:30 → MS2 16:26
PROVIDERS: Family Medicine; Emergency Provider Emergency Medicine; Visit Provider Internal Medicine
DX: F11.23 Opioid dependence with withdrawal (principal); E10.65 Type 1 diabetes mellitus with hyperglycemia; F17.210 Nicotine dependence, cigarettes, uncomplicated; Z79.4 Long term (current) use of insulin
CPT/HCPCS: 36415; 80048; 82962; 83036; 83735; 84703; 85025; 97802; 99285; J7030; A4216; J2405

== ENCOUNTER 2018-03-23 11:49 | Emergency (ER) | payer MEDICAID, SELFPAY ==
[2018-03-23 11:51] VITALS: BP 147/98; PULSE 101; RESP 24; TEMP 36.1; O2SAT 99; BMI 22.7
--- NOTE | 2018-03-23 12:03 | ED.VISSUMM ---
- ER Visit Summary Date of Service: 03/23/18 Chief Complaint: Heroin detox History of Present Illness: The patient is a 28 F with history of heroin injection type 1 diabetes who presents for detox. Patient last used yesterday. She is currently complaining of nausea, restlessness and muscle aches. She was in detox with [facility] in August. She denies any current use of buprenorphine. Patient denies . States she has not been using her insulin. Physical Examination: Vital signs: afebrile, hemodynamically stable, no hypoxia on room air General: well nourished, well developed, in no distress, yawning and fidgeting legs Skin: warm, dry, no rash, no pallor, multiple track jesus, none appearing infected HEENT: normocephalic and atraumatic; PERRL, EOMI, moist mucous membranes Cardiovascular: Tachycardic rate and rhythm without murmurs, no peripheral edema, 2+ pulses all distal extremities Respiratory: No increased work of breathing, lungs are clear to auscultation bilaterally, no rales, rhonchi or wheezing Abdominal: Abdomen is soft, nontender with normoactive bowel sounds, no guarding or rebound, no masses MSK: Moves all extremities, no deformities, normal strength Neuro: Awake and alert, oriented ?4. No facial droop, sensation and motor function intact and symmetric Test Results: [] Emergency Department Course and Treatment: Patient presents requesting detox from heroin. She is showing mild symptoms of withdrawal, with my withdrawal score calculated at 5. She was given ibuprofen for her muscle aches and Zofran for nausea. [facility] is evaluating the patient for admission for detox. Medical workup to evaluate for any possible hyperglycemic complications in progress. [facility] evaluated the patient and did not determine her to be in significant withdrawal to qualify for detox. Patient became very irate of being told this and stated she was going outside to smoke. Patient did not return for a significant period of time, and was assumed to have eloped. However she did eventually return and stated she wanted to leave and was not going to stay for any of the medical workup for her poorly controlled diabetes. Patient left without any discharge paperwork. Treatment Plan: [] Disposition: [] Impression: Heroin abuse, heroin withdrawal, medication noncompliance, type 1 diabetes This note was generated with artandseekation software. It may contain incorrect words, spelling, and punctuation that were not noted in review of the chart prior to signing ED Disposition - Plan for ED Patient: Disposition: Home or Assisted Living Chief Complaint: Substance Abuse Instructions: ED Withdrawal Narcotic Referrals: NOT,DEFINED [NON-STAFF] - Additional Instructions: Please follow-up with [facility] for repeat evaluation when you develop worsening withdrawal symptoms. Take your diabetic medications as you have been instructed by your doctor. If you have any worsening of your condition or any new concerning symptoms, please return immediately to the emergency department for another evaluation.
--- NOTE | 2018-03-23 12:10 | ED.RN ---
PT WITNESSED LEAVING DEPARTMENT, WHEN ASKED IF SHE WAS LEAVING SHE STATED I'M REALLY IRRITATED RIGHT NOW, I NEED TO GO SMOKE A CIGARETTE. PRIMARY RN MADE AWARE.
--- NOTE | 2018-03-23 12:52 | ED.RN ---
PT REFUSING LAB TESTS OR TREATMENT AT THIS TIME. SHE STATES MY DAD IS COMING TO GET ME, YOU DON'T NEED TO DO ANY OF THAT. DR. JEAN AWARE.
--- NOTE | 2018-03-23 13:08 | ED.DEP ---
ED Disposition - Plan for ED Patient: Disposition: Home or Assisted Living Chief Complaint: Substance Abuse Instructions: ED Withdrawal Narcotic Referrals: NOT,DEFINED [NON-STAFF] - Additional Instructions: Please follow-up with [facility] for repeat evaluation when you develop worsening withdrawal symptoms. Take your diabetic medications as you have been instructed by your doctor. If you have any worsening of your condition or any new concerning symptoms, please return immediately to the emergency department for another evaluation.
--- NOTE | 2018-03-23 13:18 | ED.RN ---
PT LEFT PRIOR TO RECEIVING DISCHARGE PAPERS.
== END 2018-03-23 13:18 | disposition home or self-care (01) ==
PROVIDERS: Emergency Provider Emergency Medicine
DX: F11.23 Opioid dependence with withdrawal (principal); I10 Essential (primary) hypertension; E10.9 Type 1 diabetes mellitus without complications; F17.200 Nicotine dependence, unspecified, uncomplicated; Z79.4 Long term (current) use of insulin; Z91.14 Patient's other noncompliance with medication regimen; Z79.899 Other long term (current) drug therapy
CPT/HCPCS: 99282